=== PATIENT | male | born 1980 | race Caucasian/White ===

== ENCOUNTER → 2021-06-30 | Outpatient (CLI) | payer OTHER ==
--- NOTE | 2021-07-01 03:49 | MR ---
EXAMINATION TYPE: MR brain wo/w con DATE OF EXAM: 06/30/2021 COMPARISON: None HISTORY: Visual decline in left eye, disc edema left. CONTRAST: Standard multiplanar, multisequence MRI departmental protocol images were obtained without contrast a nd with 8 mL intravenous Gadavist gadolinium contrast. Ventricles have normal size. There is no mass effect or midline shift. There is no sign of intracrani al hemorrhage. Corpus callosum appears normal. Sella turcica is normal. Diffusion images show no evid ence of an acute infarct. Toussaint and white matter structures have normal signal pattern. There is no edema. Brainstem is intact. Cerebellum appears normal. There is no evidence of orbital mass. The globes are symmetric. Sella turc ica appears normal. Optic chiasm appears normal. Contrast images show no pathologic enhancement. There is normal enhancement of the venous sinuses. IMPRESSION: Negative MR scan of the brain.
== END | disposition home or self-care (01) ==
LOC: RADMRIMAIN 17:15
PROVIDERS: ATTEND Ophthalmology
DX: H05.222 Edema of left orbit (principal)
CPT/HCPCS: 70553; A9585

== ENCOUNTER 2021-12-04 07:51 | Day surgery (SDC) | payer OTHER ==
[2021-12-03 10:29] VITALS: BMI 24.4
[~2021-12-04 07:51] MED LIST: LACTATED RINGERS 1,000 ML IV SCH
[2021-12-04 08:52] VITALS: TEMP 98.1
[2021-12-04] MEDS ORDERED: fentaNYL (PF) 50 MCG/ML 2 ML AMP ONE (10:12)
[2021-12-04] MEDS ORDERED: MIDAZOLAM 2 MG/2 ML VIAL ONE (10:12)
[2021-12-04] MEDS ORDERED: PROPOFOL 10 MG/ML 20 ML VIAL IV ONE (10:12)
[2021-12-04] MEDS ORDERED: LIDOCAINE 2% INJ 20 MG/ML (2 ML VIAL) ONE (10:12)
--- NOTE | 2021-12-04 10:19 | P.GSHP ---
History of Present Illness H&P Date: 12/04/21 Chief Complaint: GERD 's is 41-year-old male who presents today for EGD. He is issues with GERD. Past Medical History Past Medical History: GERD/Reflux History of Any Multi-Drug Resistant Organisms: None Reported Past Surgical History: No Surgical Hx Reported Past Anesthesia/Blood Transfusion Reactions: No Reported Reaction Smoking Status: Former smoker - Past Family History Mother Family Medical History: No Reported History Medications and Allergies Home Medications Medication Instructions Recorded Confirmed Type Omeprazole [PriLOSEC] 40 mg PO DAILY 12/03/21 12/04/21 History Allergies Allergy/AdvReac Type Severity Reaction Status Date / Time No Known Allergies Allergy Verified 12/04/21 08:40 Surgical - Exam Vital Signs Temp Pulse Resp BP Pulse Ox 98.1 F 80 18 135/84 97 12/04/21 08:50 12/04/21 08:50 12/04/21 08:50 12/04/21 08:50 12/04/21 08:50 - General well developed, well nourished, no distress - Eyes PERRL - ENT normal pinna - Neck no masses - Respiratory normal expansion - Cardiovascular Rhythm: regular - Abdomen Abdomen: soft, non tender Assessment and Plan Assessment: GERD. We'll perform EGD.
--- NOTE | 2021-12-04 10:40 | P.OP ---
Date of Procedure: 12/04/21 Preoperative Diagnosis: GERD Postoperative Diagnosis: GERD Procedure(s) Performed: EGD Anesthesia: MAC Surgeon: Mickey Colón Pathology: none sent Condition: stable Disposition: PACU Description of Procedure: The patient's placed on the endoscopy table in the lateral position. He received IV sedation. After adequate sedation. The gastroscope patient patient's mouth. This point the patient was healing. Scope was withdrawn. The the suction catheter was then placed the patient's mouth. Patient was gagging. He had saliva reflux. This was suctioned. The patient was reassessed by anesthesia. He then was recently. The patient had the gastro-placed oropharynx passed in the esophagus and stomach. Scope was placed through the pylorus. First and second portion of duodenum appeared normal. Scope was then brought back the antrum was mildly inflamed. A biopsies performed. The scope was then retroflexed and patient had a sliding hiatal hernia. The GE junction was at 38 cm. The distal esophagus appeared inflamed. A biopsies performed. The proximal esophagus appeared normal. Scope was then withdrawn for patient.
[2021-12-04 10:49] VITALS: RESP 16
[2021-12-04 11:18] VITALS: BP 137/83; PULSE 80
== END 2021-12-04 11:39 | disposition home or self-care (01) ==
LOC: ORWHC2ENDO 07:51
PROVIDERS: ATTEND Surgery
DX: K31.9 Disease of stomach and duodenum, unspecified (principal); K21.9 Gastro-esophageal reflux disease without esophagitis; K21.00 Gastro-esophageal reflux disease with esophagitis, without bleeding; K44.9 Diaphragmatic hernia without obstruction or gangrene; Z87.891 Personal history of nicotine dependence; Z79.899 Other long term (current) drug therapy
CPT/HCPCS: 88305; 43239; J2250; J3010; J2704; J2001